=== PATIENT | male | born 1955 | race Caucasian/White ===

== ENCOUNTER 2017-06-28 15:06 | Emergency (ER) | payer OTHER ==
[~2017-06-28] VITALS: Ht 180.3 cm; Wt 99.8 kg
[~2017-06-28 15:06] MED LIST: AMPICILLIN TRI500 MG PO; ASA81BEC PO; ASPIR 8181 MG PO; ASPIRIN EC81 M1; AUGMENTIN 875875 MG TOP; B12INJ IM; BACLOFEN 10MG T10 MG PO; BETAMETHASONE D15 G1; BETAMETHASONE D15 G1 TOP; BETAMETHASONE D45 G1 TP; CLINDAMYCIN PHO40 GM VG; COLACE100 MG PO; COUMADIN 5 MG TA5 M1 PO; D3 DOTS2000 UNIT PO; DIPROLENE AF 0.15 GM TP; ENOXAPARIN100 MG/11 SUBQ; ENOXAPARIN30 MG/0.3 SUBQ; FLOMAX0.4 MG PO; KEFLEX500 MG PO; LIORESAL 10 MG10 MG PO; LIPITOR 20 MG T20 M1 PO; LIPITOR10 MG PO; LISINOPRIL5 MG PO; LOVENOX INJECTION; MINOCIN100 MG PO; NORCO 10-325 T1 EACH PO; NORCO 5-325 TA1 EACH PO; PERCOCET PO; PRINIVIL5 MG PO; ROBAXIN 750 MG750 M1 PO; ROBAXIN500 MG PO; VITAMIN D-32000 UNIT PO; VITAMIN D2000 UNIT PO
[2017-06-28] MEDS ORDERED: COUMADIN7.5 MG PO (15:19)
[2017-06-28 16:59] LABS: APTT 45.2 Seconds (25.0-31.3); PROTIME 49.4 Seconds (9.20-11.50)
[2017-06-28 17:07] LABS: INR 5.2
[2017-06-28] MEDS ORDERED: HYDROCODONE-AP1 EAC6 PO (18:23)
[2017-06-28 19:00] VITALS: BP 135/88
[2018-03-08] MEDS ORDERED: PROSCAR 5MG TABL5 MG PO (11:16)
[2018-03-08] MEDS ORDERED: PROZAC10 MG PO (11:16)
== END 2017-06-28 19:00 | disposition home or self-care (01) ==
LOC: M.ERS 15:06
PROVIDERS: Physician Assistant
DX: S70.12XA Contusion of left thigh, initial encounter (principal); M79.605 Pain in left leg; R79.1 Abnormal coagulation profile; W22.8XXA Striking against or struck by other objects, initial encounter; Y93.89 Activity, other specified; Y92.89 Other specified places as the place of occurrence of the external cause; Y99.8 Other external cause status

== ENCOUNTER → 2017-11-05 | Outpatient (CLI) | payer OTHER ==
[~2017-11-05] MED LIST changes: +COUMADIN7.5 MG PO; +HYDROCODONE-AP1 EAC6 PO; +PROSCAR 5MG TABL5 MG PO; +PROZAC10 MG PO
--- NOTE | 2017-11-05 11:42 | 2DMMODE ---
[place] [address] 2 D/M-MODE ECHOCARDIOGRAM Name: EULA BOOGIE Room: [facility]#: [id number] Admission: 11/05/17 Attend Phys: Micheal Domínguez, Discharge: Date of : 57 Date of Service: 11/05/17 1141 Report #: [id number] THIS REPORT FOR: //name// APPROVED REPORT Study performed: 11/05/2017 08:18:08 EXAM: Comprehensive 2D, Doppler, and color-flow Echocardiogram Patient Location: Out-Patient Status: routine BSA: 2.12 HR: 55 bpm BP: 130/78 mmHg Other Information Study Quality: Good Indications Aortic Valve Disease Aortic Valve replacement. St. Иван 2D Dimensions LVEF(%): 77.88 (>50%) IVSd: 14.06 (7-11mm) LVOT Diam: 21.60 (18-24mm) LVDd: 49.81 mm PWd: 11.77 (7-11mm) Ascending Ao: 29.93 (22-36mm) LVDs: 26.56 (25-40mm) Aortic Root: 32.64 mm Bledsoe's LVEF: 77.88 % Volumes Left Atrial Volume (Systole) LA ESV Index: 20.50 mL/m2 Aortic Valve AoV Peak Sam.: 2.51 m/s AO Peak Gr.: 25.11 mmHg LVOT Max P.49 mmHg AO Mean Gr.: 13.83 mmHg LVOT Mean P.71 mmHg LVOT Max V: 1.54 m/s AO V2 VTI: 49.81 cm LVOT Mean V: 1.00 m/s MIRIAN (VTI): 2.49 cm2 LVOT V1 VTI: 33.88 cm Mitral Valve E/A Ratio: 0.90 [place] [address] 2 D/M-MODE ECHOCARDIOGRAM Name: EULA BOOGIE Room: [facility]#: [id number] Admission: 11/05/17 Attend Phys: Micheal Domínguez, Discharge: Date of : 57 Date of Service: 11/05/17 1141 Report #: [id number] MV Decel. Time: 232.06 ms MV E Max Sam.: 0.81 m/s MV PHT: 67.30 ms MVA (PHT): 3.27 cm2 TDI E/Lateral E': 6.23 E/Medial E': 10.13 Medial E' Sam.: 0.08 m/s Lateral E' Sam.: 0.13 m/s Pulmonary Valve PV Peak Sam.: 1.32 m/s PV Peak Gr.: 6.94 mmHg Tricuspid Valve RAP Estimate: 5.00 mmHg TR Peak Gr.: 16.97 mmHg RVSP: 21.97 mmHg PA Pressure: 21.97 mmHg Left Ventricle The left ventricle is normal size. There is normal LV segmental wall motion. Mild concentric left ventricular hypertrophy. Left ventricular systolic function is normal. The left ventricular ejection fraction is within the normal range. LVEF is 60-65%. The left ventricular diastolic function is normal. Right Ventricle The right ventricle is normal size. The right ventricular systolic function is normal. Atria The left atrium size is normal. The right atrium size is normal. Aortic Valve St.Иван Aortic valve replacement Mild aortic regurgitation. Mild aortic stenosis. Mitral Valve The mitral valve is normal in structure. Trace mitral regurgitation. No evidence of mitral valve stenosis. Tricuspid Valve The tricuspid valve is normal in structure. Mild tricuspid regurgitation. estimated pa pressure 25 [place] [address] 2 D/M-MODE ECHOCARDIOGRAM Name: EULA BOOGIENE Room: [facility]#: [id number] Admission: 11/05/17 Attend Phys: Micheal Domínguez, Discharge: Date of : 57 Date of Service: 11/05/17 1141 Report #: [id number] The pulmonary valve is normal in structure. There is no pulmonic valvular regurgitation. Great Vessels The aortic root is normal in size. IVC is normal in size and collapses with >50% inspiration Pericardium There is no pericardial effusion. <Conclusion> LVEF is 60-65%. Mild aortic stenosis. Mild aortic regurgitation. St.Иван Aortic valve replacement <ELECTRONICALLY SIGNED> By: Kayode Vasquez MD, FACC 11/05/17 1141 1141 1141 Kayode Vasquez MD, FACC /INF
== END ==
LOC: M.CRD 08:00
DX: I08.2 Rheumatic disorders of both aortic and tricuspid valves (principal); I48.2 Chronic atrial fibrillation; Z95.2 Presence of prosthetic heart valve

== ENCOUNTER → 2018-01-04 | Outpatient (CLI) | payer OTHER | LOC: M.MRI 12-26 07:30 | DX: M47.26 Other spondylosis with radiculopathy, lumbar region (principal); M51.16 Intervertebral disc disorders with radiculopathy, lumbar region; I10 Essential (primary) hypertension ==

== ENCOUNTER → 2018-01-23 | Outpatient (CLI) | payer OTHER ==
[~2018-01-23] MED LIST changes: -PROSCAR 5MG TABL5 MG PO; -PROZAC10 MG PO
[2018-01-23 13:58] LABS: CREATININE 0.9 mg/dL (0.6-1.3)
== END ==
LOC: M.LAB 13:30 → M.MRI 14:30
DX: M54.2 Cervicalgia (principal); R20.0 Anesthesia of skin; M62.81 Muscle weakness (generalized); G89.29 Other chronic pain; M48.02 Spinal stenosis, cervical region; I10 Essential (primary) hypertension; Z72.89 Other problems related to lifestyle

== ENCOUNTER → 2018-03-08 | Outpatient (CLI) | payer OTHER ==
[~2018-03-08] MED LIST changes: +PROSCAR 5MG TABL5 MG PO; +PROZAC10 MG PO
[2018-03-08 08:52] LABS: PROTIME 10.4 Seconds (9.20-11.50)
[2018-03-08 10:53] VITALS: BP 123/69
[2018-03-08 12:10] VITALS: BP 108/56
== END ==
LOC: M.RAD 03-01 11:36 → M.LAB 07:54 → M.RAD 09:00
DX: M50.30 Other cervical disc degeneration, unspecified cervical region (principal); M48.02 Spinal stenosis, cervical region; M25.512 Pain in left shoulder; M51.36 Other intervertebral disc degeneration, lumbar region; Z98.890 Other specified postprocedural states; Z79.899 Other long term (current) drug therapy